=== PATIENT | female | born 1975 | race Caucasian/White ===

== ENCOUNTER → 2017-09-19 | Emergency (ER) | payer OTHER ==
[~2017-09-19] VITALS: Ht 154.9 cm; Wt 95.3 kg
[~2017-09-19] MED LIST: CLARITIN PO; FLONASE ALLERG9.9 ML
== END | disposition home or self-care (01) ==
LOC: ER 14:24
DX: S01.112A Laceration without foreign body of left eyelid and periocular area, initial encounter (principal); S93.402A Sprain of unspecified ligament of left ankle, initial encounter; W18.39XA Other fall on same level, initial encounter; Y93.89 Activity, other specified; Y92.89 Other specified places as the place of occurrence of the external cause; Y99.8 Other external cause status

== ENCOUNTER 2017-10-01 09:35 | Emergency (ER) | payer OTHER ==
[~2017-10-01] VITALS: Ht 165.1 cm; Wt 95.3 kg
== END 2017-10-01 10:30 | disposition home or self-care (01) ==
LOC: ER 09:35
DX: Z48.02 Encounter for removal of sutures (principal)

== ENCOUNTER 2021-09-08 09:02 | Outpatient (CLI) | payer OTHER | END 2021-09-08 09:03 | disposition home or self-care (01) | LOC: MAMO-SONO 09:02 | PROVIDERS: ATTEND Obstetrics & Gynecology | DX: N60.11 Diffuse cystic mastopathy of right breast (principal) ==

== ENCOUNTER 2023-06-21 12:46 | Outpatient (CLI) | payer OTHER | END 2023-06-21 12:47 | disposition home or self-care (01) | LOC: RAD 12:46 | DX: Z01.818 Encounter for other preprocedural examination (principal) ==

== ENCOUNTER 2023-09-14 10:40 | Outpatient (CLI) | payer OTHER | END 2023-09-14 10:52 | disposition home or self-care (01) | LOC: MAMO-SONO 10:40 | PROVIDERS: ATTEND Obstetrics & Gynecology | DX: N60.11 Diffuse cystic mastopathy of right breast (principal) ==

== ENCOUNTER 2024-09-17 09:37 | Outpatient (CLI) | payer OTHER | END 2024-09-17 09:56 | disposition home or self-care (01) | LOC: SONOGRAMA 09:37 | PROVIDERS: ATTEND Physical Medicine & Rehabilitation Hospice and Palliative Medicine | DX: M79.642 Pain in left hand (principal); M65.4 Radial styloid tenosynovitis [de Quervain] ==

== ENCOUNTER 2024-12-30 10:30 | Outpatient (CLI) | payer OTHER | END 2024-12-30 10:44 | disposition home or self-care (01) | LOC: MAMO-SONO 10:30 | PROVIDERS: ATTEND Obstetrics & Gynecology | DX: N60.11 Diffuse cystic mastopathy of right breast (principal) ==

== ENCOUNTER → 2025-06-16 | Emergency (ER) | payer OTHER ==
[~2025-06-16] VITALS: Ht 165.1 cm; Wt 88.5 kg
== END | disposition left against medical advice (07) ==
LOC: ER 10:18
DX: Z53.21 Procedure and treatment not carried out due to patient leaving prior to being seen by health care provider (principal)